=== PATIENT | female | born 1965 | race Caucasian/White ===

== ENCOUNTER 2018-04-18 20:02 | Emergency (ER) | payer OTHER ==
[~2018-04-18] VITALS: Ht 175.3 cm; Wt 74.4 kg
[2018-04-18 20:07] VITALS: BP 143/90
--- NOTE | 2018-04-18 20:12 | NUR ---
VISION ACUITY BOTH EYES 20/40, RT EYE 20/40, LEFT EYE 20/40
--- NOTE | 2018-04-18 20:13 | NUR ---
TO LOBBY A/W BED, NATALI BARBER NOTED
--- NOTE | 2018-04-18 21:28 | NUR ---
PT AMBULATED TO BED 8
--- NOTE | 2018-04-18 21:57 | NUR ---
52/F CAME IN ED, C/O R EYE PAIN, X24 HRS. PT STATED SHE WAS CLEANING APPT AND THINKS THAT SHE HAS SAWDUST IN HER EYE. PT REPORTS FEELING OF "SOMETHING IN THERE" IN R EYE. R EYE REDNESS NOTED, PT DENIES ITCHING. LUNG SOUNDS CLEAR BL. HX ASTHMA RX ALBUTEROL INHALER
--- NOTE | 2018-04-18 23:30 | NUR ---
ER AT BEDSIDE
[2018-04-18] MEDS ORDERED: TETRACAINE HCL/PF 0.5% OPTH 4 ML BTL ONE (23:50)
[2018-04-18] MEDS ORDERED: FLUORESCEIN OPTH STRIP 0.6 MG ONE (23:50)
[2018-04-19 02:02] VITALS: BP 116/74
--- NOTE | 2018-04-19 02:03 | NUR ---
Patient discharged with v/s stable. Written and verbal after care instructions given and explained. Patient alert, oriented and verbalized understanding of instructions. Ambulatory with steady gait. All questions addressed prior to discharge. ID band removed. Patient advised to follow up with PMD. Rx of ERYTHROMYCIN OPTHALMIC OINTMENT given. Patient educated on indication of medication including possible reaction and side effects. Opportunity to ask questions provided and answered.
== END 2018-04-19 02:02 | disposition home or self-care (01) ==
LOC: MED 20:02
DX: H02.89 Other specified disorders of eyelid (principal); J44.9 Chronic obstructive pulmonary disease, unspecified; F17.200 Nicotine dependence, unspecified, uncomplicated
CPT/HCPCS: 99283